=== PATIENT | female | born 1990 | race Caucasian/White ===

== ENCOUNTER 2020-03-11 12:13 | Day surgery (SDC) | payer OTHER ==
[2020-03-09 11:08] LABS: BAND NEUTROPHILS % (MANUAL) 0 % (0-5)
[2020-03-09 11:16] LABS: HEMATOCRIT 39.9 % (36-46); HEMOGLOBIN 13.2 g/dL (12.0-16.0); MEAN CORPUSCULAR HEMOGLOBIN 29.7 pg (26.0-34.0); MEAN CORPUSCULAR VOLUME 90 fL (80-100); PLATELET COUNT (AUTO) 310 K/uL (150-450); RED BLOOD CELL COUNT(AUTO) 4.43 MIL/uL (4.00-5.20); RED CELL DISTRIBUTION WIDTH 12.2 % (11.5-14.5)
[2020-03-09 11:28] LABS: ANION GAP 11 mmol/L (8-16); CALCIUM, TOTAL 8.8 mg/dL (8.8-10.5); CARBON DIOXIDE 25 mmol/L (22-29); CHLORIDE 106 mmol/L (98-107); CREATININE 0.79 mg/dL (0.60-1.30); GLOMERULAR FILTR. RATE CALC > 60 mL/min (>60); GLUCOSE,RANDOM 108 mg/dL (70-110); POTASSIUM 3.5 mmol/L (3.5-5.1); SODIUM SERUM 142 mmol/L (136-145); UREA NITROGEN, BLOOD 15 mg/dL (7-18)
[2020-03-09 11:29] LABS: COVID AG,FIA SOURCE NASOPHARYNGEAL
[2020-03-09 11:36] LABS: LYMPHOCYTES % (MANUAL) 23 % (22-44); MONOCYTES % (MANUAL) 4 % (2-9); SEGMENTED NEUTROPHILS % 73 % (40-70)
[2020-03-09 14:37] LABS: HCG,QUANTITATIVE 373 mIU/mL (0-6)
[~2020-03-11 12:13] MED LIST: RINGERS SOLUTION,LACTATED 1,000 ML IV ONE
[2020-03-11] MEDS ORDERED: PROPOFOL 1% 20 ML VIAL IVP ONE (12:14)
[2020-03-11] MEDS ORDERED: 0.9% SODIUM CHLORIDE 10 ML VIAL IVP ONE (12:14)
[2020-03-11] MEDS ORDERED: LIDOCAINE/PF 2% 5 ML VIAL IM ONE (12:14)
[2020-03-11] MEDS ORDERED: DEXAMETHASONE SOD PHOS 4 MG/ML VIAL IVP ONE (12:14)
[2020-03-11] MEDS ORDERED: ONDANSETRON HCL 4 MG/2 ML VIAL IVP ONE (12:14)
[2020-03-11] MEDS ORDERED: FentaNYL CITRATE PF 100 MCG/2 ML VIAL IVP ONE (12:14)
[2020-03-11] MEDS ORDERED: BUPIVACAINE HCL/PF 0.25% 30 ML VIAL ONE (12:32)
[2020-03-11] MEDS ORDERED: SODIUM CL IRRIG SOLN BAG 3,000 ML IRRIG ONE (12:33)
[2020-03-11] MEDS ORDERED: SODIUM CHLORIDE 0.9% 1,000 ML ONE (12:33)
[2020-03-11] MEDS ORDERED: LIDOCAINE/PF 1% 30 ML VIAL ONE (12:33)
[2020-03-11] MEDS ORDERED: MEPERIDINE-PF 25 MG/ML VIAL IVP PRN (14:00)
[2020-03-11] MEDS ORDERED: RINGERS SOLUTION,LACTATED 1,000 ML IV ONE (14:00)
[2020-03-11] MEDS ORDERED: FentaNYL CITRATE PF 100 MCG/2 ML VIAL IVP PRN (14:00)
[2020-03-11] MEDS ORDERED: MUPIROCIN CALCIUM 2% 22 GM OINTMENT ONE (14:32)
[2020-03-11] MEDS ORDERED: BACITRACIN 28 GM OINTMENT TP ONE (14:32)
[2020-03-11] MEDS ORDERED: HYDROmorphone 2 MG/ML VIAL ONE (15:18)
[2020-03-11] MEDS: HYDROmorphone 2 MG/ML VIAL IVP PRN ×2 (15:22→15:59)
[2020-03-11] MEDS ORDERED: ACETAMINOPHEN 1000 MG/ISO-OSM 100 ML IV ONE ×2 (16:28→16:30)
[2020-03-11] MEDS ORDERED: HYDROCODONE/ACETAMINOPHEN 5-325 MG TABLET PO ONE (16:30)
[2020-03-11] MEDS ORDERED: OXYGEN THERAPY IH SCH (20:00)
== END 2020-03-11 17:00 | disposition home or self-care (01) ==
LOC: SURGERY 12:13
PROVIDERS: ATTEND Orthopaedic Surgery Hand Surgery
DX: S52.571A Other intraarticular fracture of lower end of right radius, initial encounter for closed fracture (principal); X58.XXXA Exposure to other specified factors, initial encounter; Y93.89 Activity, other specified; Y92.89 Other specified places as the place of occurrence of the external cause; Y99.8 Other external cause status; Z98.890 Other specified postprocedural states
CPT/HCPCS: 25609; 36415; 80048; 84702; 85007; 85027; 87426; C1713; C9803; J0131; J0690; J1100; J1170; J2405; J2704; J3010; J3490 ×3; J7030; J7120